=== PATIENT | male | born 1955 | race Caucasian/White ===

== ENCOUNTER 2017-02-20 09:04 | Emergency (ER) | payer BC ==
[~2017-02-20] VITALS: Ht 182.9 cm; Wt 65.9 kg
[~2017-02-20 09:04] MED LIST: ASPIRIN E.C. 8181 MG PO; BYSTOLIC2.5 MG PO; CHOLESTEROL MED; CREON 36000 PO; DIFLUCAN 100MG100 MG PO; FLEXERIL10 MG PO; FLORINEF ACETA0.1 MG PO; LANOXIN 0.120.125 MG PO; NORCO 325 MG-51 TAB PO; PRINIVIL5 MG PO; PROTONIX 40MG T40 MG PO; PROTONIX20 MG PO; REGLAN 10MG/11 MG/ML PO; ZANTAC 300300 MG PO; ZOFRAN ODT8 MG PO; [UNRECOGNIZED DRUG - OTHER]
[2017-02-20 09:07] VITALS: BP 150/72; PULSE 66; TEMP 97
[2017-02-20 09:54] LABS: BASO % 0.5 % (0.0-2.0); EOS % 0.2 % (0-4.0); GRAN # 6.3 (1.4-6.5); GRAN % 74.4 % (42.2-75.2); LYMPH # 0.9 (1.2-3.4); MEAN CELL VOLUME 103 fl (80.0-100.0); MEAN CORPUSCULAR HEMOGLOBIN 33 pg (27.0-31.0); MEAN CORPUSCULAR HGB CONC 32 g/dl (33.0-37.0); MEAN PLATELET VOLUME 10.7 fl (7.4-10.4); MONO # 1.3 (0.1-0.6); MONO % 14.7 % (1.7-9.3); PLATELET COUNT 330 K/mm3 (130-400); RED BLOOD COUNT 3.06 M/mm3 (4.20-5.60); REDCELL DISTRIBUTION WIDTH-CV 14.4 % (11.5-14.5); WHITE BLOOD COUNT 8.5 K/mm3 (4.8-10.8)
[2017-02-20 09:55] LABS: HEMATOCRIT 31.5 % (42.0-52.0)
[2017-02-20 10:04] LABS: ADJUSTED CALCIUM 8.8 mg/dL (8.4-10.2); ALBUMIN 3.9 gm/dL (3.5-5.0); BILIRUBIN,TOTAL 0.6 mg/dL (0.0-1.0); CALCIUM 8.7 mg/dL (8.4-10.2); CREATININE, serum 0.97 mg/dL (0.66-1.25); POTASSIUM 4.3 mmol/L (3.4-5.0)
[2017-02-20 10:07] LABS: PH 5 (5-8); SQUAMOUS EPITHELIAL None Seen /hpf; URINE APPEARANCE Hazy; URINE BACTERIA None Seen /hpf; URINE BILIRUBIN Negative (NEGATIVE); URINE BLOOD 3+ (NEGATIVE); URINE COLOR Yellow; URINE GLUCOSE Negative (NEGATIVE); URINE KETONE Trace (NEGATIVE); URINE RBC >50 /hpf; URINE UROBILINOGEN Negative (NEGATIVE); URINE WBC 0-2 /hpf
[2017-02-20] MEDS ORDERED: FLOMAX 0.40.4 MG/CAP PO (11:29)
[2017-02-20] MEDS ORDERED: PERCOCET 325 MG1 TA2 PO (11:29)
[2017-02-20] MEDS ORDERED: CIPRO 500MG TA500 MG PO (11:29)
[2017-02-20] MEDS ORDERED: ZOFRAN 4MG T4 MG/TAB PO (11:32)
== END 2017-02-20 11:48 | disposition home or self-care (01) ==
LOC: COL.ER 09:04
PROVIDERS: Physician Assistant Medical
DX: N13.2 Hydronephrosis with renal and ureteral calculous obstruction (principal); C25.9 Malignant neoplasm of pancreas, unspecified; C79.51 Secondary malignant neoplasm of bone; C77.9 Secondary and unspecified malignant neoplasm of lymph node, unspecified; I51.9 Heart disease, unspecified; Z95.0 Presence of cardiac pacemaker
CPT/HCPCS: J1885; J2405; J7030

== ENCOUNTER 2017-02-22 11:01 | Day surgery (SDC) | payer BC ==
[~2017-02-22] VITALS: Ht 185.4 cm; Wt 70.3 kg
[2017-02-22] VITALS (7 sets, daily range): BP systolic 131–149; BP diastolic 72–85; PULSE 59–91; TEMP 98.1–99.2
[~2017-02-22 11:01] MED LIST changes: +CIPRO 500MG TA500 MG PO; +FLOMAX 0.40.4 MG/CAP PO; +PERCOCET 325 MG1 TA2 PO; +ZOFRAN 4MG T4 MG/TAB PO
[2017-02-22] MEDS ORDERED: SYNTHROID0.05 MG/TA PO (12:21)
[2017-02-22] MEDS ORDERED: CALCIUM 600/VIT1 CAP PO (12:23)
[2017-02-22] MEDS ORDERED: VITAMIN D31000 IU PO (12:23)
[2017-02-22] MEDS ORDERED: SENOKOT S 50 MG1 TAB PO (14:54)
[2017-02-22] MEDS ORDERED: NORCO 325 MG-51 TAB PO (14:54)
[2017-02-22] MEDS ORDERED: PYRIDIUM 100MG100 MG PO (14:55)
== END 2017-02-22 16:10 | disposition home or self-care (01) ==
LOC: SDCO 11:01
DX: N20.2 Calculus of kidney with calculus of ureter (principal); N21.0 Calculus in bladder; C78.7 Secondary malignant neoplasm of liver and intrahepatic bile duct; C79.51 Secondary malignant neoplasm of bone; E78.5 Hyperlipidemia, unspecified; Z87.891 Personal history of nicotine dependence; Z84.1 Family history of disorders of kidney and ureter; G47.33 Obstructive sleep apnea (adult) (pediatric); Z90.49 Acquired absence of other specified parts of digestive tract; Z85.07 Personal history of malignant neoplasm of pancreas; Z95.0 Presence of cardiac pacemaker; Z87.442 Personal history of urinary calculi; Z96.641 Presence of right artificial hip joint
CPT/HCPCS: C1769; C1894; C2617; J0690; J1100; J1885; J2405; J2704; J3010; J7120

== ENCOUNTER 2017-05-01 13:03 | Day surgery (SDC) | payer BC ==
[~2017-05-01] VITALS: Ht 185.4 cm; Wt 66.2 kg
[~2017-05-01 13:03] MED LIST changes: +CALCIUM 600/VIT1 CAP PO; +PYRIDIUM 100MG100 MG PO; +SENOKOT S 50 MG1 TAB PO; +SYNTHROID0.05 MG/TA PO; +VITAMIN D31000 IU PO
[2017-05-01 14:01] VITALS: BP 114/76; PULSE 82; TEMP 97.7
[2017-05-01 15:41] VITALS: BP 110/73; PULSE 67; TEMP 97.6
[2017-05-01 15:55] VITALS: BP 108/74; PULSE 62
[2017-05-01 16:10] VITALS: BP 110/77; PULSE 59
[2017-05-01 16:25] VITALS: BP 121/73; PULSE 61
== END 2017-05-01 16:35 | disposition home or self-care (01) ==
LOC: SDCO 13:03
DX: K31.89 Other diseases of stomach and duodenum (principal); K21.9 Gastro-esophageal reflux disease without esophagitis; I48.91 Unspecified atrial fibrillation; I10 Essential (primary) hypertension
CPT/HCPCS: OP; C1726; J2250; J2405; J3010; J7030

== ENCOUNTER 2017-09-11 13:40 | Day surgery (SDC) | payer BC ==
[~2017-09-11] VITALS: Ht 185.4 cm; Wt 70.6 kg
[2017-09-11 13:54] VITALS: BP 115/76; PULSE 68; TEMP 98
[2017-09-11] MEDS ORDERED: SYNTHROID0.088 MG/T PO (14:11)
[2017-09-11] MEDS ORDERED: PROTONIX 40MG T40 MG PO (14:11)
[2017-09-11 16:20] VITALS: BP 117/80; PULSE 69
[2017-09-11 16:35] VITALS: BP 115/76; PULSE 69
[2017-09-11 16:50] VITALS: BP 123/81; PULSE 60
[2017-09-12 11:24] VITALS: BP 110/73; PULSE 65
== END 2017-09-11 16:55 | disposition home or self-care (01) ==
LOC: SDCO 13:40
DX: K31.84 Gastroparesis (principal); K31.89 Other diseases of stomach and duodenum; K31.9 Disease of stomach and duodenum, unspecified; I10 Essential (primary) hypertension; E78.5 Hyperlipidemia, unspecified; Z90.49 Acquired absence of other specified parts of digestive tract
CPT/HCPCS: OP; C1726; J2250; J3010

== ENCOUNTER 2017-10-30 11:33 | Day surgery (SDC) | payer BC ==
[~2017-10-30] VITALS: Ht 185.4 cm; Wt 67.3 kg
[~2017-10-30 11:33] MED LIST changes: +SYNTHROID0.088 MG/T PO; -VITAMIN D31000 IU PO; +VITAMIND3 5000 PO
[2017-10-30 12:15] VITALS: BP 137/91; PULSE 64; TEMP 97.5
[2017-10-30 13:45] VITALS: BP 134/82; PULSE 60
[2017-10-30 13:51] VITALS: BP 125/82; PULSE 64
[2017-10-30 14:00] VITALS: BP 135/99; PULSE 60
[2017-10-30 16:40] VITALS: BP 125/82; PULSE 68
== END 2017-10-30 14:36 | disposition home or self-care (01) ==
LOC: SDCO 11:33
DX: D64.9 Anemia, unspecified (principal); Z86.010 Personal history of colon polyps; I10 Essential (primary) hypertension; E78.5 Hyperlipidemia, unspecified; Z95.810 Presence of automatic (implantable) cardiac defibrillator
CPT/HCPCS: OP; J2250; J2405; J3010; J7030

== ENCOUNTER 2017-11-17 19:54 | Emergency (ER) | payer BC ==
[~2017-11-17] VITALS: Ht 185.4 cm; Wt 67.3 kg
[2017-11-17 19:58] VITALS: BP 150/73; PULSE 75; TEMP 97.9
== END 2017-11-17 21:05 | disposition home or self-care (01) ==
LOC: COL.ER 19:54
DX: M79.89 Other specified soft tissue disorders (principal); Z95.5 Presence of coronary angioplasty implant and graft; Z98.890 Other specified postprocedural states; Z85.07 Personal history of malignant neoplasm of pancreas; Z79.82 Long term (current) use of aspirin

== ENCOUNTER 2019-03-28 12:37 | Outpatient (CLI) | payer MEDICARE, BC ==
[~2019-03-28] VITALS: Ht 185.4 cm; Wt 73.5 kg
[~2019-03-28 12:37] MED LIST changes: +COREG 6.256.25 MG/TA PO; +MULTIPLE VITAMI1 CAP PO
[2019-03-28] MEDS ORDERED: LANOXIN 0.120.125 MG PO (12:53)
[2019-03-28] MEDS ORDERED: COREG 6.256.25 MG/TA PO (12:53)
[2019-03-28] MEDS ORDERED: LEVOXYL0.125 MG PO (12:54)
[2019-03-28] MEDS ORDERED: PROTONIX 40MG T40 MG PO (12:54)
[2019-03-28] MEDS ORDERED: CENTRUM1 TA1 PO (12:55)
[2019-03-28] MEDS ORDERED: ASPIRIN E.C. 8181 MG PO (12:55)
[2019-03-28] MEDS ORDERED: [UNRECOGNIZED DRUG - CODE] PO (12:56)
[2019-03-28 12:57] VITALS: BP 157/97; PULSE 69
[2019-03-28] MEDS ORDERED: NATURE'S BLEND100 M2 PO (12:57)
[2019-03-28 14:05] VITALS: BP 153/85; PULSE 61; PULSE 65
--- NOTE | 2019-03-28 14:05 | NUR ---
Patient to room EU10 from procedure. PAtient A&Ox3. Denies pain and discomfort. VSS. IV CDI. Bandaid on lower midline spinal column. Post op VS monitored. No further needs expressed from patient. Call light within reach
[2019-03-28 14:20] VITALS: BP 146/85; PULSE 60
[2019-03-28 14:35] VITALS: BP 148/77; PULSE 60
[2019-03-28 14:50] VITALS: BP 146/85; PULSE 60
[2019-03-28 15:20] VITALS: BP 153/89; PULSE 64
--- NOTE | 2019-03-28 15:33 | NUR ---
Discharge paperwork reviewed with patient and family. Patient verbalized an understanding of following doctors orders. Patient transfered by nurse by wheelchair to vehicle. driving patient home. No further needs expressed from patient.
== END 2019-03-28 16:30 | disposition home or self-care (01) ==
LOC: COL.RAD 12:37
DX: M48.061 Spinal stenosis, lumbar region without neurogenic claudication (principal); M51.26 Other intervertebral disc displacement, lumbar region; Z98.1 Arthrodesis status
CPT/HCPCS: Q9965

== ENCOUNTER → 2020-12-09 | Outpatient (CLI) | payer MEDICARE, BC ==
[~2020-12-09] MED LIST changes: +CENTRUM1 TA1 PO; +CEPHALEXIN500 M1 PO; +LEVOXYL0.125 MG PO; +NATURE'S BLEND100 M2 PO; +[UNRECOGNIZED DRUG - CODE] PO
== END ==
LOC: COL.RAD 11:31
DX: Z96.89 Presence of other specified functional implants (principal)

== ENCOUNTER 2021-01-07 11:00 | Outpatient (RCR) | payer MEDICARE, BC ==
[~2021-01-07] VITALS: Ht 185.4 cm; Wt 69.0 kg
[2021-01-07 13:45] VITALS: BP 136/77; PULSE 60; TEMP 98.4
[2021-01-07 14:05] VITALS: BP 138/82; PULSE 60; TEMP 98.4
[2021-01-07 14:20] VITALS: BP 146/80; PULSE 61; TEMP 98
[2021-01-07 14:50] VITALS: BP 152/84; PULSE 60; TEMP 98.3
[2021-01-07 15:35] VITALS: BP 143/84; PULSE 61; TEMP 98.2
== END 2021-01-07 19:27 | disposition home or self-care (01) ==
LOC: EUO 11:00
DX: D64.9 Anemia, unspecified (principal)
CPT/HCPCS: J7030; J7050; P9016